=== PATIENT | male | born 1985 | race Caucasian/White ===

== ENCOUNTER 2019-10-29 11:22 | Emergency (ER) | payer SELFPAY ==
[~2019-10-29] VITALS: Ht 170.2 cm; Wt 79.5 kg
[2019-10-29] MEDS ORDERED: BETAMETHASONE 0.05% TP ONE (12:45)
[2019-10-29] MEDS ORDERED: FAMOTIDINE 20 MG TABLET PO ONE (12:45)
[2019-10-29 13:14] VITALS: BP 135/82
[2019-10-29] MEDS ORDERED: BETAMETHASONE DIP 0.05% 15 GM CREAM TP ONE (13:15)
== END 2019-10-29 13:22 | disposition home or self-care (01) ==
LOC: EMS 11:28
DX: L30.9 Dermatitis, unspecified (principal)